=== PATIENT | female | born 1950 | race Caucasian/White ===

== ENCOUNTER → 2016-12-27 | Outpatient (CLI) | payer MEDICARE, OTHER | LOC: CT 10:30 | DX: F17.210 Nicotine dependence, cigarettes, uncomplicated (principal); R91.1 Solitary pulmonary nodule | CPT/HCPCS: G0297 ==

== ENCOUNTER 2017-04-04 12:29 | Emergency (ER) | payer OTHER, MEDICARE | END 2017-04-04 17:30 | disposition home or self-care (01) | LOC: ER1 12:29 | DX: M54.5 Low back pain (principal); M54.2 Cervicalgia; M25.552 Pain in left hip; J44.9 Chronic obstructive pulmonary disease, unspecified; M81.0 Age-related osteoporosis without current pathological fracture; F17.210 Nicotine dependence, cigarettes, uncomplicated | CPT/HCPCS: 71020; 72040; 72100; 73030; 73502; 99283 ==

== ENCOUNTER → 2020-12-07 | Outpatient (CLI) | payer MEDICARE, OTHER | LOC: KOH-I 12-02 10:00 | DX: Z12.2 Encounter for screening for malignant neoplasm of respiratory organs (principal); F17.210 Nicotine dependence, cigarettes, uncomplicated; R91.8 Other nonspecific abnormal finding of lung field | CPT/HCPCS: 71271 ==

== ENCOUNTER → 2021-03-07 | Outpatient (CLI) | payer MEDICARE, OTHER | LOC: US 15:30 | DX: R22.42 Localized swelling, mass and lump, left lower limb (principal) | CPT/HCPCS: 93971 ==

== ENCOUNTER → 2021-12-11 | Outpatient (CLI) | payer MEDICARE, OTHER | LOC: KOH-I 09:58 | DX: F17.210 Nicotine dependence, cigarettes, uncomplicated (principal); R91.8 Other nonspecific abnormal finding of lung field | CPT/HCPCS: 71271 ==

== ENCOUNTER → 2022-04-02 | Outpatient (CLI) | payer MEDICARE, OTHER | LOC: RAD 11:44 | DX: Z72.0 Tobacco use (principal); J43.9 Emphysema, unspecified | CPT/HCPCS: 36600; 71046; 82803 ==

== ENCOUNTER 2022-06-26 08:24 | Emergency (ER) | payer MEDICARE, OTHER ==
[2022-06-26 09:39] LABS: HEMOGLOBIN 13.8 gm/dl (12.3-15.3); RED BLOOD COUNT 4.7 M/UL (4.00-5.10); WHITE BLOOD COUNT 8.4 K/UL (4.5-11.0)
[2022-06-26 10:05] LABS: BUN/CREATININE RATIO 23 (0-10)
[2022-06-26] MEDS ORDERED: AUGMENTIN 500-500 MG PO (11:10)
[2022-06-26] MEDS ORDERED: VIBRAMYCIN100 MG PO ×2 (11:10→11:29)
[2022-06-26] MEDS ORDERED: OMNICEF 300 MG300 MG PO (11:29)
== END 2022-06-26 11:36 | disposition home or self-care (01) ==
LOC: ER1 08:24
PROVIDERS: Emergency Medicine
DX: J44.0 Chronic obstructive pulmonary disease with (acute) lower respiratory infection (principal); J18.9 Pneumonia, unspecified organism
CPT/HCPCS: 71046; 80053; 82550; 82553; 84484; 85025; 93005; 99284

== ENCOUNTER 2022-07-08 14:39 | Emergency (ER) | payer OTHER, MEDICARE ==
[~2022-07-08 14:39] MED LIST: AUGMENTIN 500-500 MG PO; OMNICEF 300 MG300 MG PO; VIBRAMYCIN100 MG PO
[2022-07-08 15:37] LABS: BUN/CREATININE RATIO 24 (0-10)
[2022-07-08 15:54] LABS: HEMOGLOBIN 13.1 gm/dl (12.3-15.3); RED BLOOD COUNT 4.52 M/UL (4.00-5.10); WHITE BLOOD COUNT 9.4 K/UL (4.5-11.0)
[2022-07-08] MEDS ORDERED: HYDROCODON-ACE1 EAC4 PO (17:56)
[2022-07-08] MEDS ORDERED: CYCLOBENZAPRINE10 MG PO (17:56)
== END 2022-07-08 18:11 | disposition home or self-care (01) ==
LOC: ER1 14:39
PROVIDERS: Student in an Organized Health Care Education/Training Program
DX: R07.89 Other chest pain (principal); M54.9 Dorsalgia, unspecified; M54.2 Cervicalgia; R51.9 Headache, unspecified; Z90.710 Acquired absence of both cervix and uterus; R40.2410 Glasgow coma scale score 13-15, unspecified time; V89.2XXA Person injured in unspecified motor-vehicle accident, traffic, initial encounter; Y92.410 Unspecified street and highway as the place of occurrence of the external cause
CPT/HCPCS: 36600; 70450; 71045; 71260; 72125; 72128; 72131; 73060; 73090; 80053; 80307; 81001; 82803; 83605; 85025; 85610; 85730; 96374; 99285; G0480; J2270; J2405; Q9967